=== PATIENT | female | born 1995 | race Hispanic/Latino ===

== ENCOUNTER 2016-06-23 02:12 | Inpatient (IN) | payer OTHER ==
[~2016-06-23] VITALS: Ht 154.9 cm; Wt 87.1 kg
[2016-06-23] VITALS (19 sets, daily range): BP systolic 70–138; BP diastolic 38–75
--- NOTE | 2016-06-23 02:10 | NUR ---
PT ARRIVED WITH C/O CONTRACTION THAT STARTED AT 0100 THAT SHE RATES 10/10 IN HER LOWER BACK. PT ACCOMPANIED BY SIGNIFICANT OTHER AND DAUGHTER. HEIGHT AND WEIGHT ATTAINED. ASKED PT TO CHANGE INTO GOWN AND VOID. PT STATED THAT SHE WAS SCARED TO PEE SHE THOUGHT THE BABY WOULD COME OUT. ASKED PT TO TAKE OFF BOTTOMS FOR SVE. PT STATES SHE CAN'T ASSISTED PT TO REMOVE PERSONAL CLOTHING AND PUT ON GOWN. SVE 8100/0. CALLED OUT TO CALL [facility] FOR DELIVERY. INFORMED PT THAT SHE COULD TRY TO VOID AND THEN WE WOULD AMBULATE TO ROOM FOR DELIVERY. BELONGINGS MOVED TO 205. SIGNIFCANT OTHER AND DAUGHTER TO ROOM 2.
[~2016-06-23 02:12] MED LIST: OB COMPLET2 PO; PRENATAL1 TA1 PO
--- NOTE | 2016-06-23 02:25 | NUR ---
PT AMBULATED TO ROOM 2 AT 0215. EFM APPLIED. VS ASSESSED. PT PUSHING WITH CONTRACTIONS. ENCOURAGED PT TO BREATH THROUGH CONTRACTIONS. SVE 9.5/100/0. ENCOURAGING PT AT BEDSIDE. SIGNIFICANT OTHER AND DAUGHTER AT BEDSIDE.
--- NOTE | 2016-06-23 03:02 | NUR ---
DR. HENDERSON AT BEDSIDE AT 0232. SVE COMPLETE PER DR. HENDERSON. MD WAS GOING TO RUPTURE PT, BUT NOTICED PT CLEAR FLUID WHEN PT OPENED LEGS. SROM AT 0232. PT PUSHING AT 0236. PT PUSHING EFFECTIVELY WITH CONTRACTIONS. INFANT HEAD DELIVERED AT 0238. DR. HENDERSON STATES TURTLE SIGN NOTED. PT CONTINUE TO PUSH AFTER DR. HENDERSON SUCTIONED NOSE AND MOUTH ON PERINEUM. SHOULDERS DELIVERED AFTER 30 SECONDS. OF VIALBE MALE AT 0239. PLACENTA DELIVERED AT 0247. PT WAS STUCK X2 W/O SUCCESSFUL IV. DR. HENDERSON STATES CAN JUST GIVE PO CYTOTEC. GIVEN PER ORDERS, SEE EMAR. HOWEVER, PT HAS BLEEDING NOTED. SO IM PITOCIN ADMINISTERED TO RIGHT THIGH, SEE EMAR. IV STARTED IN RIGHT HAND WITH 20 UNITS OF PITOCIN STARTED AT 999 ML/HR. FUNDUS FIRM AT U, NO CLOTS. WILL CONTINUE TO MONITOR.
[2016-06-23] MEDS ORDERED: FERR SULFATE325 MG PO (03:55)
[2016-06-23] MEDS ORDERED: PRENATA4 PO (03:56)
--- NOTE | 2016-06-23 04:43 | NUR ---
IV SALINE LOCKED. FLUSHED WITHOUT RESISTANCE. ADMISSION BLOOD DRAWN VIA RAC. FUNDUS FIRM, RUBRA MODERATE BLEEDING. FAMILY MOVED TO 205. DURING BLOOD DRAW PT C/O NAUSEA. BLUE BACK GIVEN. PT PUT IN SUPINE POSITION. NOTED PT FACE TO BE PALE. BP 70/38. IV FLUID BOLUS STARTED.
--- NOTE | 2016-06-23 04:53 | NUR ---
PT STATES FEELING BETTER. PT'S FACE NO LONGER PALE. SHE THINKS IT WAS D/T THE BLOOD DRAW EVEN THOUGH THAT HAS NEVER HAPPENED BEFORE. BLEEDING SCANT WITH NO CLOTS. BP 90/57.
[2016-06-23 05:07] LABS: URINE BILIRUBIN - DIPSTICK NEGATIVE (NEGATIVE); URINE BLOOD DIPSTICK LARGE (NEGATIVE); URINE CLARITY SLIGHT CLOUDY; URINE COLOR YELLOW; URINE GLUCOSE - DIPSTICK NEGATIVE (NEGATIVE); URINE KETONE NEGATIVE (NEGATIVE); URINE LEUK ESTERASE NEGATIVE (NEGATIVE); URINE NITRITE - DIPSTICK NEGATIVE (Negative); URINE PH 7.5 (4.5-8.0); URINE PROTEIN - DIPSTICK 30 mg/dL (NEG-TRACE); URINE SPECIFIC GRAVITY 1.025; URINE UROBILINOGEN - DIPSTICK 0.2 E.U./dL (0.2)
[2016-06-23 05:11] LABS: HEMATOCRIT 29.8 % (37.0-47.0); HEMOGLOBIN 9.5 g/dl (12.0-16.0); IMMATURE GRANULOCYTES 0.5 % (0.0-1.0); MEAN CELL VOLUME 77.8 fL CALC (80.0-100.0); MEAN CORPUSCULAR HGB 24.8 pG CALC (26.0-32.0); MEAN CORPUSCULAR HGB CONC 31.9 g/L CALC (32.0-36.0); NEUT# 15.02 thou/uL (2.00-7.15); RED BLOOD COUNT 3.83 mill/uL (4.20-5.60); RED CELL DISTRI WIDTH 15.6 % (11.5-15.5)
[2016-06-23 05:12] LABS: BARBITURATES NEGATIVE (NEGATIVE); COCAINE NEGATIVE (NEGATIVE); METHADONE NEGATIVE (NEGATIVE); TETRAHYDROCANNABIONOL NEGATIVE (NEGATIVE); TRICYLIC ANTIDEPRESSANTS NEGATIVE (NEGATIVE)
[2016-06-23 05:13] LABS: OXCYCODONE NEGATIVE (NEGATIVE)
--- NOTE | 2016-06-23 05:15 | NUR ---
PT OOB TO BR TO VOID. CONCETTA CARE PROVIDED. PT VOIDED 400 ML. EDUCATED PT ON CONCETTA CARE AND DEMONSTRATED UNDERSTANDING. TOPICAL SPRAY APPLIED. WHEN PT STOOD UP TO LIFT UNDERWEAR PT STATES SHE IS DIZZY. ASSISTED PT BACK TO SITTING ON TOLIET. CALLED FOR ASSISTANCE. ALCOHOL PADS PLACED TO PT'S NOSTRIL TO REVIVE. Erinn SNOWDEN RN BROUGHT WHEELCHAIR TO TRANSFER PT TO 0205. PT PLACED IN BED. PT STATES IS FEELING BETTER. JUICE PROVIDED. IV BOLUS CONTINUED. FAMILY AT BEDSIDE. PT DENIES ANY PAIN OR NEEDS. EDUCATED PT TO VOID EVERY 2-3 HOURS AND PERFORM CONCETTA CARE. HOWEVER, TO CALL PRIOR TO GETTING UP NEXT TIME. PT VERBALIZED UNDERSTANDING. ENCOURAGED PT TO CALL WITH NEEDS OR CONCERNS.
[2016-06-23 05:24] LABS: URINE BACTERIA RARE hpf; URINE RBC TNTC RBC/hpf (0-5); URINE SQUAMOUS EPITHELIAL CELL RARE EPI/hpf (0-FEW); URINE WBC 0-2 WBC/hpf (0-5)
[2016-06-23 05:28] LABS: ALBUMIN 2.9 g/dL (3.2-5.0); ALKALINE PHOSPHATASE 144 u/l (38-126); ANION GAP 14 (6-22 (CALC)); BILIRUBIN, TOTAL 0.3 mg/dL (0.0-1.4); BUN 14 mg/dL (8-21); BUN/CREATININE RATIO 20 (12-20 (CALC)); CALCIUM 9.2 mg/dL (8.4-10.2); CARBON DIOXIDE 21 mmol/l (22-30); CHLORIDE 105 mmol/l (95-108); CREATININE 0.7 mg/dL (0.5-1.0); GFR > 60 ML/MIN (>=60 (CALC)); GFR FOR AFR.AMER. > 60 ML/MIN (>=60 (CALC)); GLUCOSE 103 mg/dL (70-106); POTASSIUM 4.2 mmol/l (3.5-5.1); SGOT/AST 16 u/l (14-36); SGPT/ALT 21 u/l (9-52); SODIUM 136 mmol/l (137-146); TOTAL PROTEIN 5.8 g/dL (6.3-8.2)
--- NOTE | 2016-06-23 05:36 | NUR ---
VS ASSESSED. FAMILY AT BEDSIDE. PT DENIES ANY SNACKS AT THIS TIME. PT DENIES PAIN OR NEEDS. FOLDER PROVIDED. ENCOURAGED PT TO READ OVER OR START EDUCATION VIDEOS TODAY WHEN READY. ENCOURAGED PT TO CALL WITH NEEDS.
--- NOTE | 2016-06-23 06:36 | NUR ---
VS ASSESSED. FUNDUS FIRM AT U. SCANT BLEEDING. PT DENIES ANY PAIN OR NEEDS. FAMILY AT BEDSIDE. ENCOURAGED TO CALL WITH NEEDS.
--- NOTE | 2016-06-23 07:00 | NUR ---
RECEIVED CARE OF PT. RESTING IN BED WITH NO COMPLAINTS. SIGNIFICANT OTHER AT BEDSIDE. CALL LIGHT WITHIN REACH. @0741 VITAL SIGNS OBTAINED. ASSESSMENT COMPLETED CHARTED. PT WITH PALE COMPLEXION, NO PETECHIAE. FUNDUS FIRM AT 1 ABOVE UMBILICUS.PT DENIES TRICKLING, CLOTS, OR GUSHING OF BLOOD FROM PERINEUM.PT DENIES PAIN AT THIS TIME. PT ASSISTED OUT OF BED TO RESTROOM. DENIES DIZZINESS, WEAKNESS, OR FAINTING. CONCETTA CARE BY PT. PT BACK TO BED WITH NO COMPLAINTS. CALL LIGHT WITHIN REACH.
--- NOTE | 2016-06-23 07:00 | NUR ---
PT CALLED OUT TO GET HELP GET THE BABY IN CRIB. NO ONE AT BEDSIDE TO ASSIST. PT STATES WILL BREASTFEED INFANT AND THEN TRY TO VOID. ENCOURAGED PT TO CALL AFTER FINISHES FOR ASSSITANCE UP TO BATHROOM- VERBALIED UNDERSTNADING.
--- NOTE | 2016-06-23 07:26 | NUR ---
NOTIFIED DR. HENDERSON OF HYPOTENSIVE DIZZY SPELL PRIOR TO GETTING UP AND THEN AFTER. INFORMED PT HAD 1000 ML LR BOLUS. WAS BETTER AT THIS TIME. NO NEW ORDERS.
--- NOTE | 2016-06-23 08:20 | NUR ---
DR HENDERSON IN TO SEE PT, NO NEW ORDERS AT THIS TIME.
--- NOTE | 2016-06-23 14:55 | NUR ---
DISCHARGE PLANNING REVIEWED. PT WITH NO QUESTIONS AT THIS TIME.
--- NOTE | 2016-06-23 15:24 | NUR ---
IV DISCONTINUED, CATHETER INTACT. PRESSURE APPLIED AT SITE. SITE WNL
--- NOTE | 2016-06-23 15:28 | NUR ---
PT STATES SHE WILL TAKE SHOWER LATER TODAY.
--- NOTE | 2016-06-23 17:20 | NUR ---
FAMILY VISITING AT THIS TIME. PT WITH NO REQUESTS.
--- NOTE | 2016-06-23 18:03 | NUR ---
PT EATING HOT SOUP BROUGHT IN BY FAMILY. GOURMET DINNER GIVEN.
--- NOTE | 2016-06-23 18:42 | NUR ---
REPORT GIVEN TO Christina JONES RN.
--- NOTE | 2016-06-23 19:00 | NUR ---
REPORT RECEIVED. PT SITTING UP IN BED. NO COMPLAINTS AT THIS TIME. CALL LIGHT IN REACH. ADVISED WOULD BE IN TO CHECK ON HER SOON.
--- NOTE | 2016-06-23 21:30 | NUR ---
PT UP TO SHOWER. DENIES DIZZINESS OR WEAKNESS. PT TEACHING DONE JUST PRIOR. S/O ARRIVED AND AT BEDSIDE. PT SHOWERED AND BED LINENS CHANGED.
[2016-06-24 06:20] VITALS: BP 89/51
[2016-06-24 06:36] LABS: IMMATURE GRANULOCYTES 0.8 % (0.0-1.0); MEAN CELL VOLUME 78.7 fL CALC (80.0-100.0); MEAN CORPUSCULAR HGB 24.4 pG CALC (26.0-32.0); MEAN CORPUSCULAR HGB CONC 31.1 g/L CALC (32.0-36.0); NEUT# 5.49 thou/uL (2.00-7.15); RED BLOOD COUNT 2.25 mill/uL (4.20-5.60); RED CELL DISTRI WIDTH 15.7 % (11.5-15.5)
[2016-06-24 06:38] LABS: HEMATOCRIT 17.7 % (37.0-47.0); HEMOGLOBIN 5.5 g/dl (12.0-16.0)
--- NOTE | 2016-06-24 06:41 | NUR ---
MM FROM LAB CALLED TO REPORT CRITICAL LAB RESULT OF HGB 5.5 AND HCT 17.7 ON PATIENT AT 0638. CALL PLACED TO DR. HENDERSON AT 0621 TO MAKE AWARE. STATED HE WOULD BE UP TO SEE HER SHORTLY. PT NOTIFIED TO NOT GET UP WITHOUT ASSISTANCE. PUT CALL LIGHT ON SO WE COULD HELP HER.
--- NOTE | 2016-06-24 07:07 | NUR ---
REPORT PREPARED FOR NEXT SHIFT. PT SITTING UP IN BED HOLDING . DENIES NEEDS AT THIS TIME. GIVEN FRESH WATER.
--- NOTE | 2016-06-24 07:35 | NUR ---
RECEIVED REPORT FROM Christina JONES RN. PT OUT OF BED TO RESTROOM. DENIES DIZZINESS, WEAKNESS, OR FAINTING. LIGHT LOCHIA NOTED ON CONCETTA PAD. PT PALE, NO PETECHIAE NOTED. INSTRUCTED TO NOTIFY NURSE FOR HELP BEFORE GETING OUT OF BED. ENCOURAGED NOT TO GET UP IN A FAST MOTION. PT VERBALIZED UNDERSTANDING. ASSESSMENT COMPLETED CHARTED. VITAL SIGNS OBTAINED. DR HENDERSON IN TO SEE PT. RECEIVED NEW ORDERS. ENCOURAGED TO DRINK PLENTY FLUIDS. ICE WATER GIVEN.
--- NOTE | 2016-06-24 07:45 | NUR ---
LABS DRAWN BY Christina JONES RN. RESULTS PENDING.
[2016-06-24 08:00] VITALS: BP 99/51
[2016-06-24 08:25] LABS: HEMATOCRIT 19.5 % (37.0-47.0)
--- NOTE | 2016-06-24 08:25 | NUR ---
GENET FROM LAB CALLED WITH CRITICAL VALUE.
--- NOTE | 2016-06-24 08:30 | NUR ---
PT TOLERATED BREAKFAST.NO NAUSEA. CALL LIGHT WITHIN REACH.
--- NOTE | 2016-06-24 08:30 | NUR ---
DR HENDERSON CONTACTED WITH LAB RESULTS, RECEIVED NEW ORDERS.
--- NOTE | 2016-06-24 09:40 | NUR ---
IRON PO GIVEN WITH ORANGE JUICE. PT ALERT AND ORIENTED X3. BONDING WITH INFANT. DENIES PAIN MEDICATION AT THIS TIME.
--- NOTE | 2016-06-24 13:43 | NUR ---
Resting in bed with no complaints, denies pain medication. Call light within reach.
--- NOTE | 2016-06-24 14:55 | NUR ---
PT SITTING UP FEEDING . IRON PO GIVEN WITH ORANGE JUICE. PT WITH NO COMPLAINTS OR REQUESTS.
[2016-06-24 17:00] VITALS: BP 98/54
--- NOTE | 2016-06-24 18:54 | NUR ---
REPORT GIVEN TO Sendy SILVA RN. PT DENIES PAIN MEDICATION AT THIS TIME. SIGNIFICANT OTHER AT BEDSIDE.
--- NOTE | 2016-06-24 18:54 | NUR ---
REPORT RECEIVED FROM JOMAR NEVES ON PT STATUS. PT DENIES PAIN. HAS NO QUESTIONS OR CONCERNS. FINISHING DINNER. SIGNIFICANT OTHER AT BEDSIDE.
[2016-06-24 20:30] VITALS: BP 93/52
--- NOTE | 2016-06-24 20:44 | NUR ---
PT RESTING IN BED WATCHING TV. NO COMPLAINTS. BABY IN CRIB. BED IN LOW POSITION AND CALL LIGHT WITHIN REACH. FRESH WATER GIVEN. REFUSES JUICE. WILL GIVE IRON PILL ORDERED AT 2100.
--- NOTE | 2016-06-25 01:45 | NUR ---
PT HOLDING . FINISHED INFANT. NO COMPLAINTS OF PAIN OR DISCOMFORT. FRESH WATER AND APPLE JUICE GIVEN.
--- NOTE | 2016-06-25 04:42 | NUR ---
PT SLEEPING WITH INFANT IN BED NEXT TO HER. INFANT PUT IN CRIB. PT IS ENCOURAGED AGAIN NOT TO SLEEP WITH IN BED WITH HER. DENIES PAIN. CALL LIGHT WITHIN REACH.
--- NOTE | 2016-06-25 06:30 | NUR ---
REPORT READY FOR DAY SHIFT. PT HAS NO COMPLAINTS OR CONCERNS AT THIS TIME.
--- NOTE | 2016-06-25 07:00 | NUR ---
RECEIVED CARE OF PT. SITTING UP IN BED WITH NO COMPLAINTS. DENIES PAIN. SIGNIFICANT OTHER AT BEDSIDE. ASSESSMENT CHARTED. VITALS OBTAINED. PT VERBALIZES SCANT LOCHIA. DENIES DIZZINESS, WEAKNESS, OR FAINTING. SKIN WNL, NO PETECHIAE. CALL LIGHT WITHIN REACH. @0800 DR GARZA IN TO SEE PT, RECEIVED NEW ORDERS. @0820 DR HENDERSON IN TO ASSESS PT. RECEIVED NEW ORDERS. @0900 IRON TAB GIVEN WITH ORANGE JUICE. MOTRIN GIVEN FOR PAIN OF 4. @1000 PT RATING PAIN 1/10 AT THIS TIME. NO COMPLAINTS.
[2016-06-25 08:00] VITALS: BP 109/55
[2016-06-25] MEDS ORDERED: IBUPROFEN600 MG PO (11:31)
[2016-06-25] MEDS ORDERED: LORTAB 7.57.5 MG PO (11:32)
[2016-06-25] MEDS ORDERED: IRON325 M1 PO (11:45)
--- NOTE | 2016-06-25 12:15 | NUR ---
Discharge instructions given. Patient verbalizes understanding of same. Discharged in stable condition via Wheelchair to Home with significant other. All belongings sent with pt. Prescriptions for Motrin and Ferrous Sulfate given. Pt instructed to ensure she takes ferrous sulfate as prescribed. Worksheet on iron-rich foods given. Pt to call and schedule follow-up appt at [facility] in 5 weeks.
== END 2016-06-25 12:15 | disposition home or self-care (01) | DRG 775 ==
LOC: OB 02:12 → OBOP 02:12 → OB 02:15
PROVIDERS: ADMIT Obstetrics & Gynecology; ATTEND Obstetrics & Gynecology
PROC: 10E0XZZ Delivery of Products of Conception, External Approach (ICD-10-PCS; principal; 2016-06-23)
PROC: 0HQ9XZZ Repair Perineum Skin, External Approach (ICD-10-PCS; 2016-06-23)
DX: O70.0 First degree perineal laceration during delivery (principal); D62 Acute posthemorrhagic anemia; O90.81 Anemia of the puerperium; O62.2 Other uterine inertia; Z3A.40 40 weeks gestation of pregnancy; Z37.0 Single live birth